=== PATIENT | female | born 1935 | race Caucasian/White ===

== ENCOUNTER → 2017-07-29 | Outpatient (CLI) | payer MEDICARE, BC ==
[~2017-07-29] MED LIST: AMLO2.5T PO; ESTR.625 PO; TRIA1CAP6 PO
[2017-07-29 14:54] LABS: HEMATOCRIT 42.5 % (35.0-46.0); MEAN CELL VOLUME 91.8 FL (80.0-100.0); MEAN CORPUSCULAR HEMOGLOBIN 30.7 PG (27.0-34.0); MEAN CORPUSCULAR HGB CONC 33.4 % (32.0-36.0); PLATELET COUNT 237 TH/MM3 (150-450); RED BLOOD COUNT 4.63 MIL/MM3 (4.00-5.30); RED CELL DISTRIBUTION WIDTH 12.3 % (11.6-17.2); REVIEW FLAG FINAL; WHITE BLOOD COUNT 4.8 TH/MM3 (4.0-11.0)
== END ==
LOC: PHPRE 12:15
PROVIDERS: ATTEND Obstetrics & Gynecology
DX: Z01.812 Encounter for preprocedural laboratory examination (principal)
CPT/HCPCS: 36415; 85027; 86850; 86900; 86901; 86920

== ENCOUNTER 2017-07-31 06:15 | Observation (INO) | payer MEDICARE, BC ==
[~2017-07-31] VITALS: Ht 162.6 cm; Wt 85.2 kg
[2017-07-31] MEDS ORDERED: POVIDONE IODINE 5% (ANTISEPSIS KIT) 4 APPLICATIONS EACH NARE PRN (06:30)
[2017-07-31] MEDS ORDERED: CHLORHEXIDINE GLUCONATE 2 % 1 PACK (2 CLOTHS) TOPICAL PRN (06:30)
[2017-07-31] MEDS ORDERED: METOPROLOL TARTRATE 25 MG TAB PO PRN (06:30)
[2017-07-31] MEDS ORDERED: LACTATED RINGER'S 1000 ML IV PRN (06:30)
[2017-07-31] MEDS ORDERED: SODIUM CHLORID 0.9% 500 ML IV PRN (06:30)
[2017-07-31] MEDS ORDERED: ceFAZolin 1,000 MG/NS 100 ML IV SCH ×2 (06:45)
[2017-07-31] MEDS ORDERED: MIDAZOLAM HCL 2 MG/2 ML VIAL ONE (07:19)
[2017-07-31] MEDS ORDERED: FAMOTIDINE 20 MG/2 ML VIAL ONE ×2 (07:19→07:23)
[2017-07-31] MEDS ORDERED: BUPIVACAINE HCL PF 0.25% 30 ML VIAL ONE ×2 (07:20→07:21)
[2017-07-31] MEDS ORDERED: ESTROGENS CONJUGATED VAG CREA 15 APPL/30 GM TUBE ONE (07:20)
[2017-07-31] MEDS ORDERED: VASOPRESSIN 20 UNITS/ML VIAL (IVTITR) ONE (08:02)
[2017-07-31] MEDS ORDERED: SODIUM CHLORIDE 0.9% 20 ML VIAL ONE (08:02)
--- NOTE | 2017-07-31 09:43 | EKG ---
Date Performed: 07/31/2017 Time Performed: 07:04:33 PTAGE: 81 years EKG: Sinus rhythm MARKED LEFT AXIS DEVIATION MODERATE VOLTAGE CRITERIA FOR LVH, CONSIDER NORMAL VARIANT MINIMAL ST DEP RESSION ABNORMAL ECG NO PREVIOUS TRACING DOCTOR: Jose Guadalupe Banda Interpretating Date/Time 07/31/2017 09:42:01
[2017-07-31 10:10] VITALS: PULSE 75
[2017-07-31] MEDS ORDERED: oxyCODONE/ACETAMINOPHEN 5 MG/325 MG TAB PO PRN (11:30)
--- NOTE | 2017-07-31 11:54 | MP ---
cc: ONOFRE SANTOYO MD DATE OF SURGERY: 07/31/2017 PREOPERATIVE DIAGNOSIS 1. Erosion of mesh into the vagina. 2. Stress urinary incontinence. 3. Cystocele. POSTOPERATIVE DIAGNOSIS 1. Erosion of mesh into the vagina. 2. Stress urinary incontinence. 3. Cystocele. OPERATION 1. Excision of everted graft material. 2. Insertion of a transobturator mid urethral sling. 3. Cystocele repair with allograft. 4. Cystoscopy. SURGEON Herminia. ANESTHESIA General endotracheal, Dr. Huynh. COMPLICATIONS None. ESTIMATED BLOOD LOSS 200 cc. SPECIMENS None. INDICATIONS This 81-year-old had a previous mid urethral sling placed by another doctor in town here some years ago. The patient reports that shortly after surgery her stress incontinence returned. On examination she was found to have an erosion of about 4 mm diameter in the anterior urethra. 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 She understands there is a higher chance of mesh erosion with immediate replacement of the urethral sling but requests it be done at the same time. FINDINGS At the time of surgery the patient was confirmed to have an erosion as indicated. The sling was evidently retropubic according to its tract. Cystoscopy was performed after replacement of the eroded graft with a mid urethral transobturator sling and cystoscopy showed good closure of the urethra as well as no evidence of perforation of the bladder. Both ureters were seen. PROCEDURE The patient was taken to the operating room and placed supine on the operating room table. After general endotracheal anesthetic she was prepped and draped in low stirrups. A Brar catheter was placed and a weighted vaginal speculum was placed. The cystocele was examined with the Brar catheter in place with palpation of the urethra for placement of the incision. The edges of the erosion were marked with a methylene blue pen. The vaginal incision was then made over the urethra after excision of the edges of the erosion. Vasopressin was used to help develop planes and for hemostasis. Approximately 20 units in 30 cc of saline were used without incident. The previous sling that had eroded was traced to the suprapubic bone on both sides of the urethra and was excised deeply as possible removing about 2 cm of the sling. The submucosal plane was then developed bilaterally from the urethra to the anterolateral sulcus bilaterally. The excess mucosa was excised. The anatomy of the groin was palpated carefully to avoid the abductor longus and other important structures and that the groins were marked for the transobturator tape. The tape needle was then placed through the groin into the left sulcus and pulled through the groin. The same procedure was carried out on the right with the sling thus placed a little bit superior into the mid urethral point and was adjusted to be neutral in tension. Cystoscopy was then performed using saline as distention media. There was good coaptation of the urethra at the site of the new sling and there was no evidence of any bladder perforation, injury or neoplasm. The defect in the vaginal mucosa was then closed after cutting a sheet of allograft material that had been soaked and placing it carefully over the defect. The defect was then closed superior edges to inferior edges in order to place the site of the erosion lateral to the new incision closure. After anchoring the material in place the defect was easily closed with 2-0 Vicryl in interrupted fashion. This was followed by packing and reconnecting the Brar catheter. The groin incisions had the sling cut at the level of the skin. The defects in the skin were closed with 3-0 Vicryl subcuticular. Dermabond was used to close the incisions as a dressing. The patient was awakened and taken to the recovery room awake and breathing on her own. She tolerated the procedure well. Sponge, needle and instrument counts were correct. She received one gram of Ancef intraoperatively. MD KIRT Torre/SURESH /11:07 AM /11:27 AM
[2017-07-31 12:00] VITALS: BP 138/67; PULSE 72; RESP 14; TEMP 97.7; O2SAT 98
[2017-07-31 16:00] VITALS: BP 118/55; PULSE 88; RESP 14; TEMP 97.8; O2SAT 97
[2017-07-31 20:00] VITALS: BP 114/66; PULSE 93; RESP 18; TEMP 96.9; O2SAT 97
[2017-08-01] VITALS: BP 118/71; PULSE 88; RESP 18; TEMP 97.1; O2SAT 96
[2017-08-01 04:00] VITALS: BP 122/81; PULSE 83; RESP 17; TEMP 98; O2SAT 95
[2017-08-01 08:39] VITALS: BP 122/63; PULSE 85; RESP 18; TEMP 97.5; O2SAT 95
[2017-08-01 12:19] VITALS: BP 131/60; PULSE 81; RESP 16; TEMP 96.2; O2SAT 99
--- NOTE | 2017-08-01 13:56 | HHI.DS ---
Discharge Summary Admission Date Jul 31, 2017 at 11:27 Discharge Date: Aug 01, 2017 Admitting Diagnosis Female stress incontinence Erosion of mesh into the vagina Cystocele (1) Erosion of vaginal mesh Diagnosis: Principal ICD Codes: T83.711A - Erosion of implanted vaginal mesh to surrounding organ or tissue, initial encounter (2) Cystocele, midline Diagnosis: Secondary ICD Codes: N81.11 - Cystocele, midline (3) Female genuine stress incontinence Diagnosis: Principal ICD Codes: N39.3 - Stress incontinence (female) (male) Procedures Excision of mesh Placement of a transobturator midurethral sling cystocele repair with graft Cystoscopy Brief History see op report PE at Discharge good Hospital Course Patient is able to void nearly completely after catheter and vaginal packing removed. Pt Condition on Discharge: Good Discharge Disposition: Discharge Home Discharge Instructions DIET: Follow Instructions for: As Tolerated, No Restrictions Activities you can perform: Pelvic Rest Activities to avoid: Lifting/Bending, Weight Bearing, Strenuous Activity, Bathing Additional Information Patient already has a follow up appointment with me 08/07/17 at 2:30 Patient has medications for post-op discomforts at [facility]. Patient is already instructed on when to resume maintenece medications. Shanae Hope MD Aug 01, 2017 13:56
== END 2017-08-01 14:40 | disposition home or self-care (01) ==
LOC: PHSDC 06:15 → UNDOADMOB 11:27 → PH3A 11:27 → PHEDA 11:27
PROVIDERS: ADMIT Obstetrics & Gynecology; ATTEND Obstetrics & Gynecology
DX: T83.711A Erosion of implanted vaginal mesh to surrounding organ or tissue, initial encounter (principal); Y76.2 Prosthetic and other implants, materials and accessory obstetric and gynecological devices associated with adverse incidents; N39.46 Mixed incontinence; N81.11 Cystocele, midline; R94.31 Abnormal electrocardiogram [ECG] [EKG]; I10 Essential (primary) hypertension; F41.1 Generalized anxiety disorder
CPT/HCPCS: 00860; 57285; 57288; 57295; 93005; C1771; C2631; G0378; J0690; J2250; J7120